=== PATIENT | female | born 1955 | race Asian ===

== ENCOUNTER 2017-06-17 17:03 | Emergency (ER) | payer OTHER ==
[~2017-06-17] VITALS: Ht 167.6 cm; Wt 87.1 kg
[2017-06-17 17:08] VITALS: Ht 167.6 cm; Wt 87.1 kg
[2017-06-17 18:42] VITALS: BP 127/81
== END 2017-06-17 18:10 | disposition home or self-care (01) ==
LOC: ED 17:03
DX: M79.604 Pain in right leg (principal); E78.00 Pure hypercholesterolemia, unspecified
CPT/HCPCS: Q0092

== ENCOUNTER 2017-09-22 02:30 | Emergency (ER) | payer OTHER ==
[~2017-09-22] VITALS: Ht 167.6 cm; Wt 84.8 kg
[2017-09-22 02:38] VITALS: BP 101/78; Ht 167.6 cm; Wt 84.8 kg
== END 2017-09-22 06:01 | disposition left against medical advice (07) ==
LOC: ED 02:30
DX: Z53.21 Procedure and treatment not carried out due to patient leaving prior to being seen by health care provider (principal)